=== PATIENT | male | born 1970 | race Caucasian/White ===

== ENCOUNTER 2023-01-13 15:15 | Emergency (ER) | payer BC, MEDICARE ==
[2023-01-13] MEDS ORDERED: Diphtheria,Pertussis(Acell),Tetanus Vaccine 0.5 ML Syringe IM ONE (15:40)
[2023-01-13] MEDS ORDERED: Lidocaine/Epineph/Tetracaine 3 ML Syringe ONE (16:03)
[2023-01-13] MEDS ORDERED: Lidocaine/Epineph/Tetracaine 3 ML Syringe TOP ONE (16:21)
== END 2023-01-13 16:50 | disposition home or self-care (01) ==
LOC: FB.ED 15:15
DX: S61.112A Laceration without foreign body of left thumb with damage to nail, initial encounter (principal); F17.210 Nicotine dependence, cigarettes, uncomplicated; Z88.0 Allergy status to penicillin; Z23 Encounter for immunization; W26.0XXA Contact with knife, initial encounter
CPT/HCPCS: 12001; 90471; 90715; 99283; A9270

== ENCOUNTER 2023-04-06 11:32 | Emergency (ER) | payer BC, MEDICARE ==
[2023-04-06] MEDS ORDERED: Ketorolac 30 MG/ML SDV IM STA (13:12)
[2023-04-06] MEDS ORDERED: Azithromycin 500 MG Tab PO ONE (13:12)
[2023-04-06] MEDS ORDERED: Cephalexin 500 MG Cap PO ONE (13:12)
== END 2023-04-06 13:47 | disposition home or self-care (01) ==
LOC: FB.ED 11:32
DX: R59.1 Generalized enlarged lymph nodes (principal); F17.210 Nicotine dependence, cigarettes, uncomplicated; Z88.0 Allergy status to penicillin
CPT/HCPCS: 96372; 99283; A9270; J1885

== ENCOUNTER 2023-04-14 08:16 | Emergency (ER) | payer MEDICARE ==
[2023-04-14] MEDS ORDERED: Sodium Chloride 0.9% 1,000 ML IV ONE (08:44)
[2023-04-14] MEDS ORDERED: Iopamidol 755 Mg/ML 100 ML Bottle IV ONE (08:53)
[2023-04-14 09:01] LABS: HEMATOCRIT 38.1 % (38.3-50.1); HEMOGLOBIN 12.8 g/dL (12.9-17.7); MEAN CORPUSCULAR HEMOGLOBIN 28.9 pg (27.0-33.3); MEAN CORPUSCULAR HGB CONC 33.6 g/dL (28.7-35.3); MEAN CORPUSCULAR VOLUME 86.1 fL (80.8-98.7); MEAN PLATELET VOLUME 7.8 fL (6.7-11.0); PLATELET COUNT,PLT 540 x10(3)uL (117-477); RED BLOOD CELL COUNT 4.43 x10(6)uL (3.90-5.90); RED CELL DISTRIBUTION WIDTH 13.1 % (12.4-15.0); WHITE BLOOD CELL COUNT,WBC 18.6 x10-3/uL (3.2-10.1)
[2023-04-14 09:04] LABS: BLOOD UREA NITROGEN,BUN 8 mg/dL (7-18); CALCIUM 10.9 mg/dL (8.6-10.2); CARBON DIOXIDE,CO2 30 mmol/L (21-32); CHLORIDE,CL 97 mmol/L (100-110); EST CRCL DRUG DOSING (CG) 73.18 mL/min; ESTIMATED GFR 91 mL/min (>60); GLUCOSE RANDOM 173 mg/dL (80-116); POTASSIUM,K 4.2 mmol/L (3.5-5.3); SODIUM,NA 136 mmol/L (135-145)
[2023-04-14 09:09] LABS: A/G RATIO 0.5; ALANINE AMINOTRANSFERASE,ALT 51 U/L (12-36); ALBUMIN 2.4 g/dL (3.5-5.2); ALKALINE PHOSPHATASE 249 IU/L (56-112); ASPARTATE AMNIOTRANSFERASE,AST 23 IU/L (5-25); BILIRUBIN TOTAL 0.2 mg/dL (0.1-1.3); PROTEIN TOTAL,TP 7.3 g/dL (6.0-8.0)
[2023-04-14 09:13] LABS: LYMPHOCYTES PERCENT MAN 9 % (13-37); MONOCYTES PERCENT MAN 9 % (4-12); SEG NEUTROPHILS PERCENT MAN 82 % (46-82)
[2023-04-14] MEDS ORDERED: Ketorolac 30 MG/ML SDV IM ONE (10:56)
[2023-04-14] MEDS ORDERED: Ketorolac 30 MG/ML SDV IVPUSH ONE (11:12)
== END 2023-04-14 11:25 | disposition home or self-care (01) ==
LOC: FB.ED 08:16
DX: C76.0 Malignant neoplasm of head, face and neck (principal); Z88.0 Allergy status to penicillin
CPT/HCPCS: 70491; 80053; 85025; 86140; 96374; 99284; J1885; Q9967